=== PATIENT | female | born 1990 | race Caucasian/White ===

== ENCOUNTER → 2019-05-31 | Outpatient (CLI) | payer OTHER ==
[2019-06-01 06:36] LABS: Candida species (DNA Probe) Negative (NEGATIVE); G. vaginalis (DNA Probe) Negative (NEGATIVE); T. vaginalis (DNA Probe) Negative (NEGATIVE)
== END | disposition home or self-care (01) ==
LOC: LAB 16:03 → LAB SHORT 16:03
PROVIDERS: Advanced Practice Midwife
DX: O23.591 Infection of other part of genital tract in pregnancy, first trimester (principal)
CPT/HCPCS: 87480; 87510; 87660; G0123

== ENCOUNTER → 2019-11-24 | Outpatient (CLI) | payer OTHER | END | disposition home or self-care (01) | LOC: LAB SHORT 17:13 → LAB 17:13 | DX: Z34.93 Encounter for supervision of normal pregnancy, unspecified, third trimester (principal) | CPT/HCPCS: 87081; 87653 ==

== ENCOUNTER 2019-12-09 13:38 | Inpatient (IN) | payer OTHER ==
[~2019-12-09] VITALS: Ht 152.4 cm; Wt 70.9 kg
[2019-12-11 14:39] LABS: BASOPHILS ABSOLUTE AUTO 0.03 K/mm3 (0.00-0.23); BASOPHILS PERCENT AUTO 0 % (0-2); EOSINOPHILS PERCENT AUTO 0 % (0-6); Hemoglobin 11.2 g/dL (11.5-16.0); IMMATURE GRAN ABSOLUTE AUTO 0.04 K/mm3 (0.00-0.10); IMMATURE GRAN PERCENT AUTO 1 % (0-1); LYMPHOCYTES ABSOLUTE AUTO 1.94 K/mm3 (0.84-5.20); LYMPHOCYTES PERCENT AUTO 24 % (21-46); MONOCYTES PERCENT AUTO 6 % (4-13); Mean Corpuscular HGB 29.8 pg (26.0-34.0); Mean Corpuscular HGB Conc 32.9 g/dL (31.5-36.5); Mean Corpuscular Volume 90 fL (80-100); Mean Platelet Volume 10.5 fL (9.1-12.4); NEUTROPHILS ABSOLUTE AUTO 5.68 K/mm3 (1.96-9.15); NEUTROPHILS PERCENT AUTO 69 % (41-73); Platelet Count 311 K/mm3 (150-400); RDW Coefficient Variation 12.2 % (11.7-14.2); RDW Standard Deviation 39.8 fL (35.1-46.3); Red Blood Cell Count 3.76 M/mm3 (3.80-5.20); White Blood Cell Count 8.19 K/mm3 (4.00-11.30)
[2019-12-12 07:03] LABS: U Amphetamine Screen Not Detected; U Barbituate Screen Not Detected; U Benzodiazapine Screen Not Detected; U Buprenorphine Screen Not Detected; U Cannabinoids Screen Not Detected; U Cocaine Screen Not Detected; U Methadone Screen Not Detected; U Methamphetamine Screen Not Detected; U Opiates Screen Not Detected; U Oxycodone Screen Not Detected; U Phencyclidine Screen Not Detected; U Propoxyphene Screen Not Detected
[2019-12-12 08:19] LABS: PCO2 Cord - Arterial 37.8 mmHg (40-50); PO2 Cord - Arterial 17.6 mmHg (16-20); pH Cord - Arterial 7.31 (7.28-7.35)
[2019-12-12 08:20] LABS: PCO2 Cord - Venous 38.1 mmHg (40-50); PO2 Cord - Venous 20.1 mmHg (28-32); pH Umbilical Cord - Venous 7.34 (7.26-7.35)
--- NOTE | 2019-12-12 08:22 | NUR ---
12/12/19 0822 Yvette Lerner BABY OUT AT 0752. CORD BLOOD AND SEGMENT GIVEN TO WILLIAM CAZARES OB. CORD SEGMENT GIVENT TO [email or web address]. SEE MD NOTE FOR CONDITION OF BABY.
--- NOTE | 2019-12-12 13:23 | NUR ---
PATIENT STATES INCREASED IN BURNING, INCISION COVERED AND INTACT, PAD CHANGED BUT SCANT BLEEDING
--- NOTE | 2019-12-12 17:49 | NUR ---
ANNALISE CARE DONE
[2019-12-13 05:47] LABS: Hematocrit 30.1 % (33.0-51.0); Mean Corpuscular HGB 30.4 pg (26.0-34.0); Mean Corpuscular HGB Conc 33.2 g/dL (31.5-36.5); Mean Corpuscular Volume 92 fL (80-100); Mean Platelet Volume 10.3 fL (9.1-12.4); Platelet Count 268 K/mm3 (150-400); RDW Coefficient Variation 12.4 % (11.7-14.2); RDW Standard Deviation 41.1 fL (35.1-46.3); Red Blood Cell Count 3.29 M/mm3 (3.80-5.20); White Blood Cell Count 11.69 K/mm3 (4.00-11.30)
--- NOTE | 2019-12-13 07:34 | NUR ---
STATES DOES NOT NEED TO VOID WILL TRY IN A SHORT TIME
--- NOTE | 2019-12-13 10:56 | NUR ---
PATIENT UP VOIDING ON OWN
== END 2019-12-14 10:55 | disposition home or self-care (01) | DRG 788 ==
LOC: BC 12-12 05:38 → PRE IP 12-12 07:30 → BC 12-13 21:37
PROVIDERS: ADMIT Obstetrics & Gynecology
PROC: 10D00Z1 Extraction of Products of Conception, Low, Open Approach (ICD-10-PCS; principal; 2019-12-12 07:30)
DX: O34.211 Maternal care for low transverse scar from previous cesarean delivery (principal); Z3A.39 39 weeks gestation of pregnancy; Z37.0 Single live birth
CPT/HCPCS: 36415; 82803; 82947; 85025; 85027; 86850; 86900; 86901; 86923; J0690; J1100; J1885; J2590; J2765; J3010; J7120

== ENCOUNTER 2021-02-12 15:16 | Emergency (ER) | payer OTHER ==
[~2021-02-12] VITALS: Ht 152.4 cm; Wt 59.0 kg
[2021-02-12] MEDS ORDERED: BUSP5 PO (19:37)
[2021-02-12] MEDS ORDERED: BUPRENORPHINE HC8 MG SL (19:39)
[2021-02-12] MEDS ORDERED: Amoxicillin500 MG PO (19:48)
[2021-02-12] MEDS ORDERED: METPRE4DP PO (19:48)
[2021-02-12] MEDS ORDERED: Mucinex600 MG PO (19:48)
== END 2021-02-12 20:03 | disposition home or self-care (01) ==
LOC: ER 15:16
DX: H65.01 Acute serous otitis media, right ear (principal); F17.200 Nicotine dependence, unspecified, uncomplicated; Z79.899 Other long term (current) drug therapy
CPT/HCPCS: 99282

== ENCOUNTER 2021-07-25 11:53 | Emergency (ER) | payer OTHER ==
[~2021-07-25] VITALS: Ht 152.4 cm; Wt 63.5 kg
[~2021-07-25 11:53] MED LIST: Amoxicillin500 MG PO; BUPRENORPHINE HC8 MG SL; BUSP5 PO; METPRE4DP PO; Mucinex600 MG PO
[2021-07-25] MEDS ORDERED: ALBU90OI INH (13:46)
== END 2021-07-25 13:59 | disposition home or self-care (01) ==
LOC: ER 11:53
DX: U07.1 COVID-19 (principal)
CPT/HCPCS: 71045; 93005; 93010; 99285-25

== ENCOUNTER → 2022-06-24 | Outpatient (CLI) | payer OTHER ==
[~2022-06-24] MED LIST changes: +ALBU90OI INH
== END | disposition home or self-care (01) ==
LOC: LAB 14:30 → LAB SHORT 14:30
DX: R21 Rash and other nonspecific skin eruption (principal)
CPT/HCPCS: 87070; 87077; 87186; 87205